=== PATIENT | female | born 1995 | race Caucasian/White ===

== ENCOUNTER 2016-12-24 11:56 | Emergency (ER) | payer BC ==
--- NOTE | 2016-12-24 12:43 | ED ---
Upper Extremity HPI - General Chief Complaint: Extremity Injury, Upper Stated Complaint: RT WRIST INJURY FROM FALL Time Seen by Provider: 12/24/16 12:13 Source: patient, RN notes reviewed Mode of arrival: ambulatory Limitations: no limitations - History of Present Illness Initial Comments: This is a 21-year-old female who presents to the emergency Department today with chief complaint of right wrist injury. Patient states within the last month she has fallen down 4 times on an outstretched hand to try to catch her fall. Her most recent fall was yesterday;she slipped on a porch and fell down onto her right wrist again. She has been treating her wrist pain with ibuprofen 800mg, ice and compression. She states the pain is severe and is sharp with any movement. Patient initially believed her wrist was sprained, but since yesterday's fall the pain has been more severe.Denies fever, chills, chest pain, shortness of breath, abdominal pain, nausea, vomiting, dysuria, hematuria, numbess, tingling, headache or vision changes. - Related Data Previous Rx's Medication Instructions Recorded Hydrocodone/Acetaminophen [[place] 1 tab PO Q4HR PRN #10 tab 12/24/16 5-325] Allergies Allergy/AdvReac Type Severity Reaction Status Date / Time No Known Allergies Allergy Verified 12/24/16 12:00 Review of Systems ROS Statement: Those systems with pertinent positive or pertinent negative responses have been documented in the HPI. ROS Other: All systems not noted in ROS Statement are negative. Past Medical History Past Medical History: No Reported History Past Surgical History: No Surgical Hx Reported Past Psychological History: Anxiety Smoking Status: Never smoker Past Alcohol Use History: None Reported Past Drug Use History: None Reported General Exam - General Exam Comments Initial Comments: General: Awake and alert, well-developed; she is tearful and appears to be in pain with right arm held in flexion across her body. HEENT: Head atraumatic, normocephalic. Pupils are equal, round and reactive to light. Extraocular movements intact. Neck: Supple. Normal ROM. Cardiovascular: Regular rate and rhythm. No murmurs, rubs or gallops. Chest symmetrical. Respiratory: Lungs clear to auscultation bilaterally. No wheezes, rales or rhonchi. Normal respiratory efffort with no use of accessory muscles. Musculoskeletal: Right Wrist-Tenderness on palpation of dorsal aspect of right wrist. Tenderness greater with flexion of right wrist compared to extension. Most tenderness elicited with abduction and adduction of right wrist. Positive snuffbox tenderness. Radial pulse 2+, equal and palpable. Sensation intact. ROM limited. Skin: [place], warm and dry without rashes or lesions. Neurological: Alert and oriented x3. CN II-XII grossly intact. Speech is fluent and answers are appropriate. No focal neuro deficits. Psychiatric: Normal mood and affect. No overt signs of depression or anxiety noted. Limitations: no limitations Course Vital Signs 12/24/16 11:58 Temperature 99.0 F Pulse Rate 93 Respiratory 20 Rate Blood Pressure 121/77 O2 Sat by Pulse 96 Oximetry Medical Decision Making - Medical Decision Making Right wrist x-ray demonstrated subtle non-displaced scaphoid fracture. Patient continues to complain of severe pain and states ibuprofen and Tylenol has not helped at all, so she will be discharged home with [place]. She is to follow-up with orthopedics within the next couple days. Wrist was placed in a short arm thumb spica splint. Neurovascular intact on recheck after splint placed. Disposition Clinical Impression: Fracture of scaphoid of right wrist Disposition: HOME SELF-CARE Condition: Good Additional Instructions: Please take medications as prescribed. Please follow up with Dr. Manuel, orthopedics within 1-2 days. Return to ED if symptoms should worsen or any concerns arise. Prescriptions: Hydrocodone/Acetaminophen [[place] 5-325] 1 tab PO Q4HR PRN #10 tab PRN Reason: Pain Referrals: None,Stated [Primary Care Provider] - 1-2 days Justin Vazquez MD [STAFF PHYSICIAN] - 1-2 days Time of Disposition: 12:59
--- NOTE | 2016-12-24 12:44 | XR ---
EXAMINATION TYPE: XR wrist complete RT DATE OF EXAM: 12/24/2016 COMPARISON: NONE HISTORY: 21-year-old female with wrist pain after fall. TECHNIQUE: 4 views FINDINGS: A couple of images suggest a very subtle lucency extending across the scaphoid waist. There is slight periscaphoid soft tissue swelling also suggested particularly on the navicular view. Mid carpal comp artment remains intact as does the radiocarpal and distal radioulnar joint. IMPRESSION: There is a subtle lucency seen on a couple images and mild soft tissue swelling. In the setting of sn uffbox tenderness, a subtle nondisplaced scaphoid waist fracture should be considered.
--- NOTE | 2016-12-24 13:08 | ED ---
Disposition Clinical Impression: Fracture of scaphoid of right wrist Disposition: HOME SELF-CARE Condition: Good Instructions: Scaphoid Fracture (ED) Additional Instructions: Please take medications as prescribed. Please follow up with Dr. Manuel, orthopedics within 1-2 days. Return to ED if symptoms should worsen or any concerns arise. Prescriptions: Hydrocodone/Acetaminophen [[place] 5-325] 1 tab PO Q4HR PRN #10 tab PRN Reason: Pain Referrals: None,Stated [Primary Care Provider] - 1-2 days Justin Vazquez MD [STAFF PHYSICIAN] - 1-2 days
[2016-12-24 13:25] VITALS: BP 119/78; PULSE 90; RESP 18; TEMP 98.8
== END 2016-12-24 13:24 | disposition home or self-care (01) ==
LOC: EC 11:56
DX: S62.001A Unspecified fracture of navicular [scaphoid] bone of right wrist, initial encounter for closed fracture (principal); W01.0XXA Fall on same level from slipping, tripping and stumbling without subsequent striking against object, initial encounter
CPT/HCPCS: 29125; 99283

== ENCOUNTER 2017-04-22 16:07 | Emergency (ER) | payer BC ==
[2017-04-22 16:28] VITALS: BP 119/83; PULSE 87; RESP 16; TEMP 98
--- NOTE | 2017-04-22 16:41 | ED ---
General Adult HPI - General Chief complaint: Extremity Injury, Upper Stated complaint: Right Arm Injury Time Seen by Provider: 04/22/17 16:23 Source: patient, RN notes reviewed Mode of arrival: ambulatory Limitations: no limitations - History of Present Illness Initial comments: 21 yo female presents to the ER with cc of right wrist pain. Patient states that she slipped and fell. Patient states that she landed onto her right foot. Patient states she has pain to the center of her right wrist. Patient admits to history of breaking the wrist in the past. She states that she feels it may be broken today. Patient states there is no head injury with this. It was a simple slip and fall on ice. Patient states that she is not currently having any other symptoms at this time. Patient states her pain is 10 out of 10. Worse to touch or movement. Patient denies any recent fever, chills, shortness of breath, chest pain, back pain, abdominal pain, nausea vomiting, numbness or tingling, dysuria or hematuria, constipation or diarrhea, headaches or visual changes, or any other current symptoms. - Related Data Previous Rx's Medication Instructions Recorded Hydrocodone/Acetaminophen [[place] 1 tab PO Q4HR PRN #10 tab 12/24/16 5-325] Hydrocodone/Acetaminophen [[place] 1 each PO Q6HR PRN #10 tab 04/22/17 5-325] Allergies Allergy/AdvReac Type Severity Reaction Status Date / Time No Known Allergies Allergy Verified 04/22/17 16:24 Review of Systems ROS Statement: Those systems with pertinent positive or pertinent negative responses have been documented in the HPI. ROS Other: All systems not noted in ROS Statement are negative. Past Medical History Past Medical History: No Reported History History of Any Multi-Drug Resistant Organisms: None Reported Past Surgical History: No Surgical Hx Reported Past Psychological History: Anxiety Smoking Status: Never smoker Past Alcohol Use History: None Reported Past Drug Use History: None Reported General Exam - General Exam Comments Initial Comments: General: The patient is awake and alert, in no distress, and does not appear acutely ill. Neck: The neck is supple, there is no tenderness. Cardiovascular: There is a regular rate and rhythm. No murmur, rub or gallop is appreciated. Respiratory: Lungs are clear to auscultation, respirations are non-labored, breath sounds are equal. No wheezes, stridor, rales, or rhonchi. Musculoskeletal: Sensation intact with 2+ pulses.reduction. Frontal motion of right elbow. Patient along the right radius. No tenderness to palpation in the ulna. Patient refuses to move the wrist due to pain. Good range of motion of fingers. Neurological: CN II-XII intact, There are no obvious motor or sensory deficits. Coordination appears grossly intact. Speech is normal. Skin: Skin is warm and dry and no rashes or lesions are noted. Psychiatric: Normal mood and affect. Limitations: no limitations Course Vital Signs 04/22/17 16:24 Temperature 98 F Pulse Rate 87 Respiratory 16 Rate Blood Pressure 119/83 O2 Sat by Pulse 100 Oximetry Procedures - Orthopedic Splinting/Casting Injury #1 Side: right Upper Extremity Injury Location: short arm, wrist Upper Extremity Immobilizer: thumb spica (short arm) Medical Decision Making - Medical Decision Making 21-year-old female presents for right wrist pain after a slip and fall. At this time patient does appear to have a scaphoid fracture. This time we did place her to come spica we discussed close follow-up with orthopedic discussed return parameters all questions. The patient stated that she understood and she is agreement this plan. All questions were answered. She'll be discharged. - Radiology Data Radiology results: report reviewed, image reviewed Disposition Clinical Impression: Fracture of scaphoid of right wrist Disposition: HOME SELF-CARE Condition: Stable Instructions: Scaphoid Fracture (ED) Additional Instructions: Please use medication as discussed. Please follow up with family doctor if symptoms have not improved over the next two days. Please return to the emergency room if your symptoms increase or worsen or for any other concerns. Prescriptions: Hydrocodone/Acetaminophen [[place] 5-325] 1 each PO Q6HR PRN #10 tab PRN Reason: Pain Referrals: Justin Vazquez MD [STAFF PHYSICIAN] - 1-2 days Time of Disposition: 17:10
--- NOTE | 2017-04-22 17:03 | XR ---
EXAMINATION TYPE: XR wrist complete RT DATE OF EXAM: 04/22/2017 COMPARISON: 12/24/2016 HISTORY: Pain TECHNIQUE: 4 views FINDINGS: There is a nondisplaced fracture of the scaphoid bone. Fracture line still visible. There i s some lucency on both sides of a fracture. There is no dislocation. Joint spaces are normal. IMPRESSION: Ununited scaphoid fracture. No change in position compared to last exam.
[2017-04-22] MEDS ORDERED: HYDROcodone/APAP 5-325MG 1 EACH TAB PO STA (17:08)
== END 2017-04-22 17:19 | disposition home or self-care (01) ==
LOC: EC 16:07
DX: S62.001A Unspecified fracture of navicular [scaphoid] bone of right wrist, initial encounter for closed fracture (principal); W00.0XXA Fall on same level due to ice and snow, initial encounter
CPT/HCPCS: 29125; 99283

== ENCOUNTER 2017-05-05 12:56 | Emergency (ER) | payer BC ==
[2017-05-05] MEDS ORDERED: SODIUM CHLORIDE 0.9% 1,000 ML IV STA (13:42)
[2017-05-05] MEDS ORDERED: LORazepam 2 MG/ML INJ IV STA (13:42)
--- NOTE | 2017-05-05 13:54 | ED ---
General Adult HPI - General Chief complaint: Recheck/Abnormal Lab/Rx Stated complaint: Seizure Source: patient, RN notes reviewed Mode of arrival: wheelchair Limitations: no limitations - History of Present Illness Initial comments: 21-year-old female presents to the emergency department with a chief complaint of concern for seizure-like activity. Patient was started on tramadol yesterday. Today she took her tramadol she was taking a nap and the boyfriend states that she yelled out and then all of a sudden he saw her shaking and foaming at the mouth. There is no biting Tylenol loss by bladder function. She has no history of seizures in the past. They state that she was in the bed and there was no other injury. She states that she was a little confused after that but now she is return to normal. There were concerns without that they should be evaluated. There is been no other symptoms and the patient. She is otherwise feeling well.Patient denies any recent fever, chills, shortness of breath, chest pain, back pain, abdominal pain, nausea vomiting, numbness or tingling, dysuria or hematuria, constipation or diarrhea, headaches or visual changes, or any other current symptoms. - Related Data Home Medications Medication Instructions Recorded Confirmed ALPRAZolam [Xanax] 1 mg PO TID PRN 05/05/17 05/05/17 traMADol HCL [[place]] 50 mg PO BID PRN 05/05/17 05/05/17 Previous Rx's Medication Instructions Recorded Cephalexin [Keflex] 500 mg PO BID #10 cap 05/05/17 Hydrocodone/Acetaminophen [[place] 1 each PO Q6HR PRN #10 tab 05/05/17 5-325] Allergies Allergy/AdvReac Type Severity Reaction Status Date / Time No Known Allergies Allergy Verified 05/05/17 13:27 Review of Systems ROS Statement: Those systems with pertinent positive or pertinent negative responses have been documented in the HPI. ROS Other: All systems not noted in ROS Statement are negative. Past Medical History Past Medical History: No Reported History History of Any Multi-Drug Resistant Organisms: None Reported Past Surgical History: No Surgical Hx Reported Past Psychological History: Anxiety Smoking Status: Never smoker Past Alcohol Use History: None Reported Past Drug Use History: None Reported General Exam Limitations: no limitations General appearance: alert, in no apparent distress Eye exam: Present: normal appearance, PERRL, EOMI. Absent: scleral icterus, conjunctival injection, periorbital swelling ENT exam: Present: normal exam, mucous membranes moist Neck exam: Present: normal inspection. Absent: tenderness, meningismus, lymphadenopathy Respiratory exam: Present: normal lung sounds bilaterally. Absent: respiratory distress, wheezes, rales, rhonchi, stridor Cardiovascular Exam: Present: regular rate, normal rhythm, normal heart sounds. Absent: systolic murmur, diastolic murmur, rubs, gallop, clicks GI/Abdominal exam: Present: soft, normal bowel sounds. Absent: distended, tenderness, guarding, rebound, rigid Neurological exam: Present: alert, oriented X3, CN II-XII intact, motor sensory deficit. Absent: reflexes normal Psychiatric exam: Present: normal affect, normal mood Skin exam: Present: warm, dry, intact, normal color. Absent: rash Course Vital Signs 05/05/17 12:57 Temperature 98.3 F Pulse Rate 98 Respiratory 20 Rate Blood Pressure 134/84 O2 Sat by Pulse 100 Oximetry Medical Decision Making - Medical Decision Making 21-year-old female presents for seizure-like activity recently started tramadol. At this time patient's lab work is been reviewed. There is suspicion for possible UTI patient does state that she had some dysuria a few days ago. We will treat accordingly. At this time we discussed unknown if your activity or not. We discussion follow-up with neurology. We discussed no driving until cleared by neurology. We discussed return parameters all questions. We discussed no tramadol. Patient is in agreement this plan and does feel comfortable with plan. At this time patient will be discharged. - Lab Data Result diagrams: 05/05/17 13:54 05/05/17 13:54 Lab Results 05/05/17 05/05/17 05/05/17 Range/Units 13:54 13:54 14:23 WBC 10.8 H (3.8-10.6) k/uL RBC 4.65 (3.80-5.40) m/uL Hgb 14.6 (11.4-16.0) gm/dL Hct 43.7 (34.0-46.0) % MCV 94.1 (80.0-100.0) fL MCH 31.3 (25.0-35.0) pg MCHC 33.3 (31.0-37.0) g/dL RDW 11.5 (11.5-15.5) % Plt Count 344 (150-450) k/uL Neutrophils % 87 % Lymphocytes % 7 % Monocytes % 4 % Eosinophils % 0 % Basophils % 0 % Neutrophils # 9.4 H (1.3-7.7) k/uL Lymphocytes # 0.8 L (1.0-4.8) k/uL Monocytes # 0.5 (0-1.0) k/uL Eosinophils # 0.0 (0-0.7) k/uL Basophils # 0.0 (0-0.2) k/uL Sodium 140 (137-145) mmol/L Potassium 3.8 (3.5-5.1) mmol/L Chloride 103 (98-107) mmol/L Carbon Dioxide 24 (22-30) mmol/L Anion Gap 13 mmol/L BUN 8 (7-17) mg/dL Creatinine 0.74 (0.52-1.04) mg/dL Est GFR (MDRD) Af Amer >60 (>60 ml/min/1.73 sqM) Est GFR (MDRD) Non-Af >60 (>60 ml/min/1.73 sqM) Glucose 116 H (74-99) mg/dL Calcium 10.1 (8.4-10.2) mg/dL Total Bilirubin 0.5 (0.2-1.3) mg/dL AST 17 (14-36) U/L ALT 26 (9-52) U/L Alkaline Phosphatase 58 (38-126) U/L Total Protein 7.5 (6.3-8.2) g/dL Albumin 4.7 (3.5-5.0) g/dL Urine Color Yellow Urine Appearance Cloudy H (Clear) Urine pH 6.0 (5.0-8.0) Ur Specific D Lo 1.020 (1.001-1.035) Urine Protein 1+ H (Negative) Urine Glucose (UA) Negative (Negative) Urine Ketones 1+ H (Negative) Urine Blood Negative (Negative) Urine Nitrite Negative (Negative) Urine Bilirubin Negative (Negative) Urine Urobilinogen <2.0 (<2.0) mg/dL Ur Leukocyte Esterase Moderate H (Negative) Urine RBC 8 H (0-5) /hpf Urine WBC 37 H (0-5) /hpf Ur Squamous Epith Cells 27 H (0-4) /hpf Urine Bacteria Rare H (None) /hpf Urine Mucus Many H (None) /hpf Urine HCG, Qual (Not Detectd) Urine Opiates Screen Not Detected (NotDetected) Ur Oxycodone Screen Not Detected (NotDetected) Urine Methadone Screen Not Detected (NotDetected) Ur Propoxyphene Screen Not Detected (NotDetected) Ur Barbiturates Screen Not Detected (NotDetected) U Tricyclic Antidepress Not Detected (NotDetected) Ur Phencyclidine Scrn Not Detected (NotDetected) Ur Amphetamines Screen Not Detected (NotDetected) U Methamphetamines Scrn Not Detected (NotDetected) U Benzodiazepines Scrn Detected H (NotDetected) Urine Cocaine Screen Not Detected (NotDetected) U Marijuana (THC) Screen Detected H (NotDetected) 05/05/17 Range/Units 14:23 WBC (3.8-10.6) k/uL RBC (3.80-5.40) m/uL Hgb (11.4-16.0) gm/dL Hct (34.0-46.0) % MCV (80.0-100.0) fL MCH (25.0-35.0) pg MCHC (31.0-37.0) g/dL RDW (11.5-15.5) % Plt Count (150-450) k/uL Neutrophils % % Lymphocytes % % Monocytes % % Eosinophils % % Basophils % % Neutrophils # (1.3-7.7) k/uL Lymphocytes # (1.0-4.8) k/uL Monocytes # (0-1.0) k/uL Eosinophils # (0-0.7) k/uL Basophils # (0-0.2) k/uL Sodium (137-145) mmol/L Potassium (3.5-5.1) mmol/L Chloride (98-107) mmol/L Carbon Dioxide (22-30) mmol/L Anion Gap mmol/L BUN (7-17) mg/dL Creatinine (0.52-1.04) mg/dL Est GFR (MDRD) Af Amer (>60 ml/min/1.73 sqM) Est GFR (MDRD) Non-Af (>60 ml/min/1.73 sqM) Glucose (74-99) mg/dL Calcium (8.4-10.2) mg/dL Total Bilirubin (0.2-1.3) mg/dL AST (14-36) U/L ALT (9-52) U/L Alkaline Phosphatase (38-126) U/L Total Protein (6.3-8.2) g/dL Albumin (3.5-5.0) g/dL Urine Color Urine Appearance (Clear) Urine pH (5.0-8.0) Ur Specific D Lo (1.001-1.035) Urine Protein (Negative) Urine Glucose (UA) (Negative) Urine Ketones (Negative) Urine Blood (Negative) Urine Nitrite (Negative) Urine Bilirubin (Negative) Urine Urobilinogen (<2.0) mg/dL Ur Leukocyte Esterase (Negative) Urine RBC (0-5) /hpf Urine WBC (0-5) /hpf Ur Squamous Epith Cells (0-4) /hpf Urine Bacteria (None) /hpf Urine Mucus (None) /hpf Urine HCG, Qual Not Detected (Not Detectd) Urine Opiates Screen (NotDetected) Ur Oxycodone Screen (NotDetected) Urine Methadone Screen (NotDetected) Ur Propoxyphene Screen (NotDetected) Ur Barbiturates Screen (NotDetected) U Tricyclic Antidepress (NotDetected) Ur Phencyclidine Scrn (NotDetected) Ur Amphetamines Screen (NotDetected) U Methamphetamines Scrn (NotDetected) U Benzodiazepines Scrn (NotDetected) Urine Cocaine Screen (NotDetected) U Marijuana (THC) Screen (NotDetected) - Radiology Data Radiology results: report reviewed, image reviewed Disposition Clinical Impression: Seizure-like activity, UTI (urinary tract infection) Disposition: HOME SELF-CARE Condition: Stable Instructions: New-Onset Seizure in Adults (ED) Additional Instructions: Please use medication as discussed. Please follow up with family doctor if symptoms have not improved over the next two days. Please return to the emergency room if your symptoms increase or worsen or for any other concerns. Prescriptions: Cephalexin [Keflex] 500 mg PO BID #10 cap Hydrocodone/Acetaminophen [[place] 5-325] 1 each PO Q6HR PRN #10 tab PRN Reason: Pain Referrals: Nathaly Thompson MD [STAFF PHYSICIAN] - 1-2 days Time of Disposition: 15:23
[2017-05-05 14:10] LABS: Basophils % (A) 0 %; Eosinophils % (A) 0 %; HCT 43.7 % (34.0-46.0); HGB 14.6 gm/dL (11.4-16.0); Lymphocytes # (A) 0.8 k/uL (1.0-4.8); Lymphocytes % (A) 7 %; MCH 31.3 pg (25.0-35.0); MCHC 33.3 g/dL (31.0-37.0); MCV 94.1 fL (80.0-100.0); Monocytes # (A) 0.5 k/uL (0-1.0); Monocytes % (A) 4 %; Neutrophils # (A) 9.4 k/uL (1.3-7.7); Neutrophils % (A) 87 %; Platelet Count 344 k/uL (150-450); RBC 4.65 m/uL (3.80-5.40); RDW 11.5 % (11.5-15.5); WBC 10.8 k/uL (3.8-10.6)
[2017-05-05 14:25] LABS: ALT 26 U/L (9-52); AST 17 U/L (14-36); Albumin 4.7 g/dL (3.5-5.0); Alkaline Phosphatase 58 U/L (38-126); Anion Gap 13 mmol/L; Blood Urea Nitrogen 8 mg/dL (7-17); Calcium 10.1 mg/dL (8.4-10.2); Carbon Dioxide 24 mmol/L (22-30); Chloride 103 mmol/L (98-107); Glucose 116 mg/dL (74-99); Potassium 3.8 mmol/L (3.5-5.1); Sodium 140 mmol/L (137-145); Total Bilirubin 0.5 mg/dL (0.2-1.3); Total Protein 7.5 g/dL (6.3-8.2)
[2017-05-05 14:40] LABS: Appearance,Urine Cloudy (Clear); Bacteria,Urine Rare /hpf; Bilirubin,Urine Negative (Negative); Blood,Urine Negative (Negative); Color,Urine Yellow; Glucose,Urine (UA) Negative (Negative); Ketones,Urine 1+ (Negative); Leukocyte Esterase,Urine Moderate (Negative); Mucus,Urine Many /hpf; Nitrite,Urine Negative (Negative); Protein,Urine 1+ (Negative); RBC,Urine 8 /hpf (0-5); Squamous Epithelial Cell,Urine 27 /hpf (0-4); Urobilinogen,Urine <2.0 mg/dL (<2.0); WBC,Urine 37 /hpf (0-5)
[2017-05-05 14:49] LABS: Amphetamine Screen,Urine Not Detected (NotDetected); Barbiturate Screen,Urine Not Detected (NotDetected); Benzodiazepines Screen,Urine Detected (NotDetected); Cocaine Screen,Urine Not Detected (NotDetected); Methadone Screen, Urine Not Detected (NotDetected); Opiate Screen,Urine Not Detected (NotDetected); Oxycodone Screen, Urine Not Detected (NotDetected); Phencyclidine Screen,Urine Not Detected (NotDetected); Tricyclic Antidepressant,Urine Not Detected (NotDetected); Urn Cannabinoid Scrn Detected (NotDetected)
--- NOTE | 2017-05-05 15:15 | CT ---
EXAMINATION TYPE: CT brain wo con DATE OF EXAM: 05/05/2017 COMPARISON: NONE HISTORY: Seizure today. No history of seizures. CT DLP: 1100 mGycm. Automated Exposure Control for Dose Reduction was Utilized. TECHNIQUE: CT scan of the head is performed without contrast. FINDINGS: There is no acute intracranial hemorrhage, mass effect, or midline shift identified. The ventricles and sulci are within normal limits in size. The globes are intact and the visualized sin uses are clear. IMPRESSION: No acute intracranial hemorrhage, mass effect, or midline shift is seen.
[2017-05-05 15:28] VITALS: BP 120/66; PULSE 84; RESP 16
[2017-05-05 15:34] VITALS: TEMP 98.2
== END 2017-05-05 15:30 | disposition home or self-care (01) ==
LOC: EC 12:56
DX: R56.9 Unspecified convulsions (principal); N39.0 Urinary tract infection, site not specified; F41.9 Anxiety disorder, unspecified
CPT/HCPCS: 99285; 96374; 36415; 93005; 80053; 85025; 81001; 81025; 80306; 87086; 70450; J2060; 87077; 87186